=== PATIENT | male | born 1945 | race Caucasian/White ===

== ENCOUNTER 2020-09-02 10:28 | Inpatient (IN) ==
[2020-09-04] MEDS ORDERED: *HR* OxyCODONE Immed Rel 5 MG TABLET PO PRN (22:54)
[2020-09-05] MEDS: *HR* OxyCODONE/APAP 5/325 TABLET PO PRN ×2 (03:44→11:22)
[2020-09-05 05:05] LABS: Basophils % 0.3 %; Eosinophils # 0.4 K/mcL (0.0-0.6); Eosinophils % 5.4 %; Hematocrit 24.5 % (37.5-50.1); Hemoglobin 8.1 g/dL (12.9-16.9); Immature Granulocytes % 1.2 % (0-4); Lymphocytes # 0.9 K/mcL (0.6-4.6); Lymphocytes % 13.1 %; Mean Corpuscular HGB Conc 33.1 g/dL (31.6-35.5); Mean Corpuscular Hemoglobin 35.4 pg (28.0-33.3); Mean Platelet Volume 8.9 fL (9.4-12.4); Monocytes # 0.6 K/mcL (0.0-1.3); Monocytes % 8.1 %; Neutrophils # 4.9 K/mcL (1.6-8.9); Platelet Count 255 K/mcL (140-400); Red Blood Count 2.29 M/mcL (4.19-5.50); Red Cell Distribution Width 14.5 % (11.5-14.5); Segmented Neutrophils % 71.9 %; White Blood Count 6.8 K/mcL (4.3-11.1)
[2020-09-05] MEDS ORDERED: methocarbamoL 750 MG TABLET PO SCH (05:15)
[2020-09-05] MEDS: methocarbamoL 500 MG TABLET PO SCH ×3 (05:16→21:20)
[2020-09-05 05:19] LABS: BUN/Creatinine Ratio 31 (6-26); Blood Urea Nitrogen 22 mg/dL (8-23); Calcium 7.9 mg/dL (8.6-10.3); Carbon Dioxide 27 mEq/L (23-29); Chloride 107 mEq/L (98-107); Glucose 101 mg/dL (70-105); Osmolality,Calculated 293 (280-300); Potassium 3.8 mEq/L (3.5-5.1); Sodium 140 mEq/L (136-145); eGFR For African Americans > 60 (> 60); eGFR For Non-African Americans > 60 (> 60)
[2020-09-05] MEDS ORDERED: *HR* Enoxaparin 40 MG/0.4 ML SYRINGE SQ SCH (07:00)
[2020-09-05] MEDS: *HR* Rivaroxaban 10 MG TABLET PO SCH (07:45)
[2020-09-05] MEDS: Aspirin Enteric Coated 81 MG Tablet PO SCH (07:45)
[2020-09-05] MEDS: Finasteride 5 MG TABLET PO SCH (07:45)
[2020-09-05] MEDS: Multivit/Ca/Min/Fe/FA 1 TAB TABLET PO SCH (07:45)
[2020-09-05] MEDS: Carbidopa/Levodopa 25/100 TABLET PO SCH ×3 (07:46→15:23)
[2020-09-05] MEDS: Rasagiline Mesylate [Azilect] 1 MG PO SCH (07:47)
[2020-09-05] MEDS: polyethylene glycoL 3350 17 GM POWD.PACK PO SCH (13:07)
[2020-09-05] MEDS: QUEtiapine Fumarate 25 MG TABLET PO SCH (21:20)
[2020-09-05] MEDS: traZODone 50 MG TABLET PO SCH (21:20)
[2020-09-05] MEDS: Latanoprost 2.5 ML BOTTLE BOTH EYES SCH (21:21)
[2020-09-06] MEDS: Aspirin Enteric Coated 81 MG Tablet PO SCH (08:03)
[2020-09-06] MEDS: *HR* OxyCODONE/APAP 5/325 TABLET PO PRN ×2 (08:03→20:38)
[2020-09-06] MEDS: Multivit/Ca/Min/Fe/FA 1 TAB TABLET PO SCH (08:03)
[2020-09-06] MEDS: Finasteride 5 MG TABLET PO SCH (08:04)
[2020-09-06] MEDS: *HR* Rivaroxaban 10 MG TABLET PO SCH (08:04)
[2020-09-06] MEDS: methocarbamoL 500 MG TABLET PO SCH ×3 (08:04→20:39)
[2020-09-06] MEDS: EXELON TP SCH (08:06)
[2020-09-06] MEDS: Rasagiline Mesylate [Azilect] 1 MG PO SCH (08:06)
[2020-09-06] MEDS: Carbidopa/Levodopa 25/100 TABLET PO SCH ×3 (08:15→16:36)
[2020-09-06] MEDS: polyethylene glycoL 3350 17 GM POWD.PACK PO SCH (08:15)
[2020-09-06] MEDS: QUEtiapine Fumarate 25 MG TABLET PO SCH (20:37)
[2020-09-06] MEDS: Sennosides/Docusate Sodium TABLET PO PRN (20:38)
[2020-09-06] MEDS: Latanoprost 2.5 ML BOTTLE BOTH EYES SCH (20:40)
[2020-09-06] MEDS: traZODone 50 MG TABLET PO SCH (20:40)
[2020-09-07 04:38] LABS: Hematocrit 24.2 % (37.5-50.1); Hemoglobin 7.8 g/dL (12.9-16.9); Mean Corpuscular HGB Conc 32.2 g/dL (31.6-35.5); Mean Corpuscular Hemoglobin 34.8 pg (28.0-33.3); Mean Platelet Volume 8.3 fL (9.4-12.4); Platelet Count 267 K/mcL (140-400); Red Blood Count 2.24 M/mcL (4.19-5.50); Red Cell Distribution Width 15.9 % (11.5-14.5); White Blood Count 5.7 K/mcL (4.3-11.1)
[2020-09-07 04:58] LABS: Alanine Aminotransferase 25 Units/L (7-52); Albumin 2.9 g/dL (3.5-5.7); Albumin/Globulin Ratio 1.4 (1.1-2.2); Alkaline Phosphatase 79 Units/L (34-104); Aspartate Amino Transferase 32 Units/L (13-39); BUN/Creatinine Ratio 47 (6-26); Bilirubin,Total 0.8 mg/dL (0.3-1.0); Blood Urea Nitrogen 32 mg/dL (8-23); Carbon Dioxide 28 mEq/L (23-29); Chloride 110 mEq/L (98-107); Globulin 2.1 g/dL (2.4-3.5); Glucose 94 mg/dL (70-105); Magnesium 2.2 mg/dL (1.6-2.6); Osmolality,Calculated 301 (280-300); Potassium 3.9 mEq/L (3.5-5.1); Sodium 142 mEq/L (136-145); eGFR For African Americans > 60 (> 60); eGFR For Non-African Americans > 60 (> 60)
[2020-09-07] MEDS: *HR* Rivaroxaban 10 MG TABLET PO SCH (09:09)
[2020-09-07] MEDS: polyethylene glycoL 3350 17 GM POWD.PACK PO SCH (09:09)
[2020-09-07] MEDS: Aspirin Enteric Coated 81 MG Tablet PO SCH (09:09)
[2020-09-07] MEDS: Multivit/Ca/Min/Fe/FA 1 TAB TABLET PO SCH (09:10)
[2020-09-07] MEDS: methocarbamoL 500 MG TABLET PO SCH ×3 (09:10→21:08)
[2020-09-07] MEDS: Finasteride 5 MG TABLET PO SCH (09:10)
[2020-09-07] MEDS: Carbidopa/Levodopa 25/100 TABLET PO SCH ×3 (09:12→16:32)
[2020-09-07] MEDS: Rasagiline Mesylate [Azilect] 1 MG PO SCH (09:18)
[2020-09-07] MEDS: EXELON TP SCH (09:18)
[2020-09-07] MEDS: *HR* OxyCODONE/APAP 5/325 TABLET PO PRN ×2 (11:42→21:08)
[2020-09-07] MEDS: QUEtiapine Fumarate 25 MG TABLET PO SCH (21:08)
[2020-09-07] MEDS: Sennosides/Docusate Sodium TABLET PO PRN (21:08)
[2020-09-07] MEDS: traZODone 50 MG TABLET PO SCH (21:09)
[2020-09-07] MEDS: Latanoprost 2.5 ML BOTTLE BOTH EYES SCH (21:12)
[2020-09-08] MEDS: *HR* OxyCODONE/APAP 5/325 TABLET PO PRN ×3 (04:41→20:58)
[2020-09-08 05:00] LABS: Hematocrit 23.5 % (37.5-50.1); Hemoglobin 7.8 g/dL (12.9-16.9); Mean Corpuscular HGB Conc 33.2 g/dL (31.6-35.5); Mean Corpuscular Hemoglobin 36.3 pg (28.0-33.3); Mean Corpuscular Volume 109.3 fL (83.0-100.0); Mean Platelet Volume 8.5 fL (9.4-12.4); Platelet Count 289 K/mcL (140-400); Red Blood Count 2.15 M/mcL (4.19-5.50); Red Cell Distribution Width 16.4 % (11.5-14.5); White Blood Count 6.1 K/mcL (4.3-11.1)
[2020-09-08 05:18] LABS: Alanine Aminotransferase 17 Units/L (7-52); Albumin 2.8 g/dL (3.5-5.7); Albumin/Globulin Ratio 1.4 (1.1-2.2); Alkaline Phosphatase 75 Units/L (34-104); Aspartate Amino Transferase 24 Units/L (13-39); BUN/Creatinine Ratio 48 (6-26); Bilirubin,Total 0.8 mg/dL (0.3-1.0); Blood Urea Nitrogen 32 mg/dL (8-23); Calcium 7.9 mg/dL (8.6-10.3); Carbon Dioxide 28 mEq/L (23-29); Chloride 106 mEq/L (98-107); Glucose 87 mg/dL (70-105); Magnesium 2.1 mg/dL (1.6-2.6); Osmolality,Calculated 294 (280-300); Potassium 3.8 mEq/L (3.5-5.1); Sodium 139 mEq/L (136-145); Total Protein 4.8 g/dL (6.4-8.9); eGFR For African Americans > 60 (> 60); eGFR For Non-African Americans > 60 (> 60)
[2020-09-08] MEDS: Rasagiline Mesylate [Azilect] 1 MG PO SCH (08:15)
[2020-09-08] MEDS: EXELON TP SCH (08:15)
[2020-09-08] MEDS: polyethylene glycoL 3350 17 GM POWD.PACK PO SCH (08:16)
[2020-09-08] MEDS: methocarbamoL 500 MG TABLET PO SCH ×3 (08:16→20:58)
[2020-09-08] MEDS: Multivit/Ca/Min/Fe/FA 1 TAB TABLET PO SCH (08:17)
[2020-09-08] MEDS: Finasteride 5 MG TABLET PO SCH (08:17)
[2020-09-08] MEDS: Aspirin Enteric Coated 81 MG Tablet PO SCH (08:19)
[2020-09-08] MEDS: *HR* Rivaroxaban 10 MG TABLET PO SCH (08:19)
[2020-09-08 08:47] LABS: % Iron Saturation 28 % (20-55); Iron 59 mcg/dL (65-175); Transferrin 150 mg/dL (203-362)
[2020-09-08 09:13] LABS: Folate 17.6 ng/mL (3.0-16.0)
[2020-09-08] MEDS: Carbidopa/Levodopa 25/100 TABLET PO SCH ×3 (09:49→16:23)
[2020-09-08] MEDS: Sennosides/Docusate Sodium TABLET PO PRN ×2 (12:40→20:57)
[2020-09-08] MEDS: QUEtiapine Fumarate 25 MG TABLET PO SCH (20:57)
[2020-09-08] MEDS: traZODone 50 MG TABLET PO SCH (20:58)
[2020-09-08] MEDS: Latanoprost 2.5 ML BOTTLE BOTH EYES SCH (20:59)
[2020-09-09] MEDS: *HR* OxyCODONE/APAP 5/325 TABLET PO PRN ×2 (06:04→21:28)
[2020-09-09] MEDS: methocarbamoL 500 MG TABLET PO SCH ×3 (08:01→21:29)
[2020-09-09] MEDS: Finasteride 5 MG TABLET PO SCH (08:01)
[2020-09-09] MEDS: Aspirin Enteric Coated 81 MG Tablet PO SCH (08:01)
[2020-09-09] MEDS: *HR* Rivaroxaban 10 MG TABLET PO SCH (08:01)
[2020-09-09] MEDS: Multivit/Ca/Min/Fe/FA 1 TAB TABLET PO SCH (08:02)
[2020-09-09] MEDS: Carbidopa/Levodopa 25/100 TABLET PO SCH ×3 (08:02→17:26)
[2020-09-09] MEDS: polyethylene glycoL 3350 17 GM POWD.PACK PO SCH (08:02)
[2020-09-09] MEDS: EXELON TP SCH (08:03)
[2020-09-09] MEDS: Rasagiline Mesylate [Azilect] 1 MG PO SCH (08:03)
[2020-09-09] MEDS: Acetaminophen 325 MG TABLET PO PRN (17:23)
[2020-09-09] MEDS: Sennosides/Docusate Sodium TABLET PO PRN (21:28)
[2020-09-09] MEDS: traZODone 50 MG TABLET PO SCH (21:29)
[2020-09-09] MEDS: QUEtiapine Fumarate 25 MG TABLET PO SCH (21:29)
[2020-09-09] MEDS: Latanoprost 2.5 ML BOTTLE BOTH EYES SCH (21:34)
[2020-09-10] MEDS: *HR* OxyCODONE/APAP 5/325 TABLET PO PRN ×2 (04:39→21:19)
[2020-09-10 04:46] LABS: Basophils % 0.6 %; Eosinophils # 0.2 K/mcL (0.0-0.6); Eosinophils % 4.8 %; Hematocrit 23.3 % (37.5-50.1); Hemoglobin 7.6 g/dL (12.9-16.9); Immature Granulocytes % 0.8 % (0-4); Lymphocytes # 0.7 K/mcL (0.6-4.6); Lymphocytes % 15.2 %; Mean Corpuscular HGB Conc 32.6 g/dL (31.6-35.5); Mean Corpuscular Hemoglobin 35.5 pg (28.0-33.3); Mean Corpuscular Volume 108.9 fL (83.0-100.0); Mean Platelet Volume 8.6 fL (9.4-12.4); Monocytes # 0.4 K/mcL (0.0-1.3); Monocytes % 8.3 %; Neutrophils # 3.4 K/mcL (1.6-8.9); Platelet Count 315 K/mcL (140-400); Red Blood Count 2.14 M/mcL (4.19-5.50); Red Cell Distribution Width 16.8 % (11.5-14.5); Segmented Neutrophils % 70.3 %; White Blood Count 4.8 K/mcL (4.3-11.1)
[2020-09-10 05:00] LABS: BUN/Creatinine Ratio 47 (6-26); Blood Urea Nitrogen 31 mg/dL (8-23); Calcium 7.8 mg/dL (8.6-10.3); Carbon Dioxide 29 mEq/L (23-29); Chloride 108 mEq/L (98-107); Glucose 97 mg/dL (70-105); Osmolality,Calculated 298 (280-300); Sodium 141 mEq/L (136-145); eGFR For African Americans > 60 (> 60); eGFR For Non-African Americans > 60 (> 60)
[2020-09-10] MEDS: polyethylene glycoL 3350 17 GM POWD.PACK PO SCH (08:40)
[2020-09-10] MEDS: methocarbamoL 500 MG TABLET PO SCH ×3 (08:40→21:18)
[2020-09-10] MEDS: EXELON TP SCH (08:41)
[2020-09-10] MEDS: Rasagiline Mesylate [Azilect] 1 MG PO SCH (08:41)
[2020-09-10] MEDS: Aspirin Enteric Coated 81 MG Tablet PO SCH (08:41)
[2020-09-10] MEDS: Multivit/Ca/Min/Fe/FA 1 TAB TABLET PO SCH (08:42)
[2020-09-10] MEDS: *HR* Rivaroxaban 10 MG TABLET PO SCH (08:42)
[2020-09-10] MEDS: Carbidopa/Levodopa 25/100 TABLET PO SCH ×3 (08:42→17:39)
[2020-09-10] MEDS: Finasteride 5 MG TABLET PO SCH (08:42)
[2020-09-10] MEDS: Acetaminophen 325 MG TABLET PO PRN (08:48)
[2020-09-10] MEDS: QUEtiapine Fumarate 25 MG TABLET PO SCH (21:18)
[2020-09-10] MEDS: Latanoprost 2.5 ML BOTTLE BOTH EYES SCH (21:19)
[2020-09-10] MEDS: traZODone 50 MG TABLET PO SCH (21:19)
[2020-09-11] MEDS: *HR* OxyCODONE/APAP 5/325 TABLET PO PRN ×2 (06:06→20:57)
[2020-09-11] MEDS: polyethylene glycoL 3350 17 GM POWD.PACK PO SCH (09:05)
[2020-09-11] MEDS: Finasteride 5 MG TABLET PO SCH (09:06)
[2020-09-11] MEDS: Carbidopa/Levodopa 25/100 TABLET PO SCH ×3 (09:06→16:57)
[2020-09-11] MEDS: methocarbamoL 500 MG TABLET PO SCH ×3 (09:06→20:57)
[2020-09-11] MEDS: Aspirin Enteric Coated 81 MG Tablet PO SCH (09:06)
[2020-09-11] MEDS: Multivit/Ca/Min/Fe/FA 1 TAB TABLET PO SCH (09:07)
[2020-09-11] MEDS: EXELON TP SCH (09:07)
[2020-09-11] MEDS: *HR* Rivaroxaban 10 MG TABLET PO SCH (09:07)
[2020-09-11] MEDS: Rasagiline Mesylate [Azilect] 1 MG PO SCH (09:07)
[2020-09-11] MEDS: traZODone 50 MG TABLET PO SCH (20:56)
[2020-09-11] MEDS: QUEtiapine Fumarate 25 MG TABLET PO SCH (20:57)
[2020-09-11] MEDS: Latanoprost 2.5 ML BOTTLE BOTH EYES SCH (20:58)
[2020-09-12] MEDS: *HR* OxyCODONE/APAP 5/325 TABLET PO PRN ×2 (06:03→20:10)
[2020-09-12] MEDS: methocarbamoL 500 MG TABLET PO SCH ×3 (09:21→20:11)
[2020-09-12] MEDS: Aspirin Enteric Coated 81 MG Tablet PO SCH (09:21)
[2020-09-12] MEDS: Finasteride 5 MG TABLET PO SCH (09:22)
[2020-09-12] MEDS: *HR* Rivaroxaban 10 MG TABLET PO SCH (09:22)
[2020-09-12] MEDS: Rasagiline Mesylate [Azilect] 1 MG PO SCH (09:23)
[2020-09-12] MEDS: polyethylene glycoL 3350 17 GM POWD.PACK PO SCH (09:23)
[2020-09-12] MEDS: EXELON TP SCH (09:23)
[2020-09-12] MEDS: Multivit/Ca/Min/Fe/FA 1 TAB TABLET PO SCH (09:23)
[2020-09-12] MEDS: Carbidopa/Levodopa 25/100 TABLET PO SCH ×3 (09:29→16:56)
[2020-09-12 18:12] LABS: Color,Urine Yellow (Yellow)
[2020-09-12 18:13] LABS: Clarity,Urine Cloudy (Clear)
[2020-09-12 18:14] LABS: Bacteria,Urine Many per hpf (None-Few); Mucus,Urine Many per lpf (None-Few); WBC,Urine 50-100 per hpf (0-3)
[2020-09-12 18:17] LABS: Renal Epithelial Cells,Urine Few per hpf (None-Few); Squamous Epithelial Cell,Urine Moderate per hpf (None-Few)
[2020-09-12] MEDS: traZODone 50 MG TABLET PO SCH (20:11)
[2020-09-12] MEDS: QUEtiapine Fumarate 25 MG TABLET PO SCH (20:11)
[2020-09-12] MEDS: cephALEXin 500 MG CAPSULE PO SCH (20:12)
[2020-09-12] MEDS: Latanoprost 2.5 ML BOTTLE BOTH EYES SCH (20:14)
[2020-09-13] MEDS: *HR* OxyCODONE/APAP 5/325 TABLET PO PRN ×2 (06:12→20:54)
[2020-09-13] MEDS: Rasagiline Mesylate [Azilect] 1 MG PO SCH (08:09)
[2020-09-13] MEDS: polyethylene glycoL 3350 17 GM POWD.PACK PO SCH (08:09)
[2020-09-13] MEDS: Aspirin Enteric Coated 81 MG Tablet PO SCH (08:09)
[2020-09-13] MEDS: methocarbamoL 500 MG TABLET PO SCH ×3 (08:10→20:46)
[2020-09-13] MEDS: cephALEXin 500 MG CAPSULE PO SCH ×3 (08:10→20:50)
[2020-09-13] MEDS: *HR* Rivaroxaban 10 MG TABLET PO SCH (08:10)
[2020-09-13] MEDS: Multivit/Ca/Min/Fe/FA 1 TAB TABLET PO SCH (08:10)
[2020-09-13] MEDS: Finasteride 5 MG TABLET PO SCH (08:10)
[2020-09-13] MEDS: Carbidopa/Levodopa 25/100 TABLET PO SCH ×3 (08:12→15:49)
[2020-09-13] MEDS: EXELON TP SCH (08:12)
[2020-09-13 11:57] LABS: Basophils % 0.2 %; Eosinophils # 0.1 K/mcL (0.0-0.6); Eosinophils % 2.8 %; Hematocrit 27.1 % (37.5-50.1); Hemoglobin 8.5 g/dL (12.9-16.9); Immature Granulocytes % 0.4 % (0-4); Lymphocytes # 0.5 K/mcL (0.6-4.6); Lymphocytes % 10.5 %; Mean Corpuscular HGB Conc 31.4 g/dL (31.6-35.5); Mean Corpuscular Hemoglobin 35.4 pg (28.0-33.3); Mean Corpuscular Volume 112.9 fL (83.0-100.0); Mean Platelet Volume 8.3 fL (9.4-12.4); Monocytes # 0.5 K/mcL (0.0-1.3); Monocytes % 10.5 %; Neutrophils # 3.5 K/mcL (1.6-8.9); Platelet Count 355 K/mcL (140-400); Red Cell Distribution Width 16.5 % (11.5-14.5); Segmented Neutrophils % 75.6 %; White Blood Count 4.7 K/mcL (4.3-11.1)
[2020-09-13 12:16] LABS: BUN/Creatinine Ratio 44 (6-26); Blood Urea Nitrogen 39 mg/dL (8-23); Calcium 8.2 mg/dL (8.6-10.3); Chloride 109 mEq/L (98-107); Glucose 115 mg/dL (70-105); Osmolality,Calculated 306 (280-300); Sodium 143 mEq/L (136-145); eGFR For African Americans > 60 (> 60); eGFR For Non-African Americans > 60 (> 60)
[2020-09-13 12:17] LABS: Carbon Dioxide 30 mEq/L (23-29)
[2020-09-13] MEDS: traZODone 50 MG TABLET PO SCH (20:48)
[2020-09-13] MEDS: QUEtiapine Fumarate 25 MG TABLET PO SCH (20:53)
[2020-09-13] MEDS: Latanoprost 2.5 ML BOTTLE BOTH EYES SCH (21:01)
[2020-09-14] MEDS: *HR* OxyCODONE/APAP 5/325 TABLET PO PRN ×2 (06:06→20:18)
[2020-09-14] MEDS: Aspirin Enteric Coated 81 MG Tablet PO SCH (09:06)
[2020-09-14] MEDS: methocarbamoL 500 MG TABLET PO SCH ×3 (09:06→20:18)
[2020-09-14] MEDS: *HR* Rivaroxaban 10 MG TABLET PO SCH (09:06)
[2020-09-14] MEDS: Carbidopa/Levodopa 25/100 TABLET PO SCH ×3 (09:07→16:03)
[2020-09-14] MEDS: cephALEXin 500 MG CAPSULE PO SCH ×3 (09:07→20:20)
[2020-09-14] MEDS: Multivit/Ca/Min/Fe/FA 1 TAB TABLET PO SCH (09:07)
[2020-09-14] MEDS: Finasteride 5 MG TABLET PO SCH (09:07)
[2020-09-14] MEDS: Rasagiline Mesylate [Azilect] 1 MG PO SCH (09:09)
[2020-09-14] MEDS: EXELON TP SCH (09:09)
[2020-09-14] MEDS: polyethylene glycoL 3350 17 GM POWD.PACK PO SCH (09:09)
[2020-09-14] MEDS: traZODone 50 MG TABLET PO SCH (20:21)
[2020-09-14] MEDS: QUEtiapine Fumarate 25 MG TABLET PO SCH (20:21)
[2020-09-14] MEDS: Latanoprost 2.5 ML BOTTLE BOTH EYES SCH (20:23)
[2020-09-15] MEDS: *HR* OxyCODONE/APAP 5/325 TABLET PO PRN ×2 (06:43→22:00)
[2020-09-15] MEDS: methocarbamoL 500 MG TABLET PO SCH ×3 (08:11→21:50)
[2020-09-15] MEDS: Finasteride 5 MG TABLET PO SCH (08:11)
[2020-09-15] MEDS: *HR* Rivaroxaban 10 MG TABLET PO SCH (08:11)
[2020-09-15] MEDS: cephALEXin 500 MG CAPSULE PO SCH ×3 (08:11→21:53)
[2020-09-15] MEDS: Aspirin Enteric Coated 81 MG Tablet PO SCH (08:12)
[2020-09-15] MEDS: Carbidopa/Levodopa 25/100 TABLET PO SCH ×3 (08:12→15:53)
[2020-09-15] MEDS: Multivit/Ca/Min/Fe/FA 1 TAB TABLET PO SCH (08:12)
[2020-09-15] MEDS: polyethylene glycoL 3350 17 GM POWD.PACK PO SCH (08:14)
[2020-09-15] MEDS: EXELON TP SCH (08:15)
[2020-09-15] MEDS: Rasagiline Mesylate [Azilect] 1 MG PO SCH (08:15)
[2020-09-15] MEDS: Latanoprost 2.5 ML BOTTLE BOTH EYES SCH (21:49)
[2020-09-15] MEDS: traZODone 50 MG TABLET PO SCH (21:51)
[2020-09-15] MEDS: QUEtiapine Fumarate 25 MG TABLET PO SCH (21:58)
[2020-09-16] MEDS: *HR* OxyCODONE/APAP 5/325 TABLET PO PRN ×2 (05:37→22:19)
[2020-09-16] MEDS: Aspirin Enteric Coated 81 MG Tablet PO SCH (08:18)
[2020-09-16] MEDS: *HR* Rivaroxaban 10 MG TABLET PO SCH (08:18)
[2020-09-16] MEDS: methocarbamoL 500 MG TABLET PO SCH ×3 (08:18→22:17)
[2020-09-16] MEDS: Finasteride 5 MG TABLET PO SCH (08:19)
[2020-09-16] MEDS: Multivit/Ca/Min/Fe/FA 1 TAB TABLET PO SCH (08:19)
[2020-09-16] MEDS: polyethylene glycoL 3350 17 GM POWD.PACK PO SCH (08:19)
[2020-09-16] MEDS: Carbidopa/Levodopa 25/100 TABLET PO SCH ×3 (08:19→15:50)
[2020-09-16] MEDS: cephALEXin 500 MG CAPSULE PO SCH ×3 (08:19→22:20)
[2020-09-16] MEDS: Rasagiline Mesylate [Azilect] 1 MG PO SCH (08:20)
[2020-09-16] MEDS: EXELON TP SCH (08:20)
[2020-09-16] MEDS: Acetaminophen 325 MG TABLET PO PRN (12:10)
[2020-09-16] MEDS: traZODone 50 MG TABLET PO SCH (22:18)
[2020-09-16] MEDS: QUEtiapine Fumarate 25 MG TABLET PO SCH (22:19)
[2020-09-16] MEDS: Latanoprost 2.5 ML BOTTLE BOTH EYES SCH (23:59)
[2020-09-17] MEDS: *HR* OxyCODONE/APAP 5/325 TABLET PO PRN ×2 (05:19→20:50)
[2020-09-17 05:26] LABS: Basophils % 0.5 %; Eosinophils # 0.2 K/mcL (0.0-0.6); Eosinophils % 4.8 %; Hemoglobin 8.4 g/dL (12.9-16.9); Immature Granulocytes % 0.7 % (0-4); Lymphocytes # 0.8 K/mcL (0.6-4.6); Lymphocytes % 18.9 %; Mean Corpuscular HGB Conc 32.3 g/dL (31.6-35.5); Mean Corpuscular Hemoglobin 35.3 pg (28.0-33.3); Mean Corpuscular Volume 109.2 fL (83.0-100.0); Mean Platelet Volume 8.3 fL (9.4-12.4); Monocytes # 0.4 K/mcL (0.0-1.3); Monocytes % 8.9 %; Neutrophils # 2.9 K/mcL (1.6-8.9); Platelet Count 386 K/mcL (140-400); Red Blood Count 2.38 M/mcL (4.19-5.50); Red Cell Distribution Width 15.8 % (11.5-14.5); Segmented Neutrophils % 66.2 %; White Blood Count 4.4 K/mcL (4.3-11.1)
[2020-09-17 05:46] LABS: BUN/Creatinine Ratio 36 (6-26); Blood Urea Nitrogen 26 mg/dL (8-23); Calcium 8.2 mg/dL (8.6-10.3); Carbon Dioxide 29 mEq/L (23-29); Chloride 107 mEq/L (98-107); Glucose 96 mg/dL (70-105); Osmolality,Calculated 299 (280-300); Sodium 142 mEq/L (136-145); eGFR For African Americans > 60 (> 60); eGFR For Non-African Americans > 60 (> 60)
[2020-09-17] MEDS: polyethylene glycoL 3350 17 GM POWD.PACK PO SCH (08:43)
[2020-09-17] MEDS: cephALEXin 500 MG CAPSULE PO SCH ×3 (08:45→20:50)
[2020-09-17] MEDS: Aspirin Enteric Coated 81 MG Tablet PO SCH (08:45)
[2020-09-17] MEDS: methocarbamoL 500 MG TABLET PO SCH ×3 (08:45→20:50)
[2020-09-17] MEDS: Carbidopa/Levodopa 25/100 TABLET PO SCH ×3 (08:45→16:16)
[2020-09-17] MEDS: Multivit/Ca/Min/Fe/FA 1 TAB TABLET PO SCH (08:45)
[2020-09-17] MEDS: *HR* Rivaroxaban 10 MG TABLET PO SCH (08:45)
[2020-09-17] MEDS: Finasteride 5 MG TABLET PO SCH (08:45)
[2020-09-17] MEDS: Rasagiline Mesylate [Azilect] 1 MG PO SCH (08:46)
[2020-09-17] MEDS: EXELON TP SCH (08:46)
[2020-09-17] MEDS: Latanoprost 2.5 ML BOTTLE BOTH EYES SCH (20:48)
[2020-09-17] MEDS: QUEtiapine Fumarate 25 MG TABLET PO SCH (20:49)
[2020-09-17] MEDS: Sennosides/Docusate Sodium TABLET PO PRN (20:50)
[2020-09-17] MEDS: traZODone 50 MG TABLET PO SCH (20:50)
[2020-09-18] MEDS: *HR* OxyCODONE/APAP 5/325 TABLET PO PRN ×2 (05:26→19:32)
[2020-09-18] MEDS: polyethylene glycoL 3350 17 GM POWD.PACK PO SCH (08:10)
[2020-09-18] MEDS: EXELON TP SCH (08:11)
[2020-09-18] MEDS: Rasagiline Mesylate [Azilect] 1 MG PO SCH (08:11)
[2020-09-18] MEDS: Aspirin Enteric Coated 81 MG Tablet PO SCH (08:11)
[2020-09-18] MEDS: methocarbamoL 500 MG TABLET PO SCH ×3 (08:12→19:34)
[2020-09-18] MEDS: cephALEXin 500 MG CAPSULE PO SCH ×3 (08:12→19:33)
[2020-09-18] MEDS: Carbidopa/Levodopa 25/100 TABLET PO SCH ×3 (08:12→16:57)
[2020-09-18] MEDS: Finasteride 5 MG TABLET PO SCH (08:12)
[2020-09-18] MEDS: *HR* Rivaroxaban 10 MG TABLET PO SCH (08:12)
[2020-09-18] MEDS: Multivit/Ca/Min/Fe/FA 1 TAB TABLET PO SCH (08:13)
[2020-09-18] MEDS: Sennosides/Docusate Sodium TABLET PO PRN (19:32)
[2020-09-18] MEDS: Latanoprost 2.5 ML BOTTLE BOTH EYES SCH (19:34)
[2020-09-18] MEDS: QUEtiapine Fumarate 25 MG TABLET PO SCH (19:34)
[2020-09-18] MEDS: traZODone 50 MG TABLET PO SCH (19:34)
[2020-09-19] MEDS: *HR* OxyCODONE/APAP 5/325 TABLET PO PRN ×3 (05:30→20:44)
[2020-09-19] MEDS: Aspirin Enteric Coated 81 MG Tablet PO SCH (07:57)
[2020-09-19] MEDS: Carbidopa/Levodopa 25/100 TABLET PO SCH ×3 (07:57→16:07)
[2020-09-19] MEDS: methocarbamoL 500 MG TABLET PO SCH ×3 (07:57→20:44)
[2020-09-19] MEDS: *HR* Rivaroxaban 10 MG TABLET PO SCH (07:58)
[2020-09-19] MEDS: polyethylene glycoL 3350 17 GM POWD.PACK PO SCH (07:58)
[2020-09-19] MEDS: EXELON TP SCH (07:58)
[2020-09-19] MEDS: Rasagiline Mesylate [Azilect] 1 MG PO SCH (07:58)
[2020-09-19] MEDS: Multivit/Ca/Min/Fe/FA 1 TAB TABLET PO SCH (07:58)
[2020-09-19] MEDS: Sennosides/Docusate Sodium TABLET PO PRN ×2 (07:58→20:44)
[2020-09-19] MEDS: Finasteride 5 MG TABLET PO SCH (07:58)
[2020-09-19] MEDS: cephALEXin 500 MG CAPSULE PO SCH ×3 (07:58→20:44)
[2020-09-19] MEDS: Latanoprost 2.5 ML BOTTLE BOTH EYES SCH (20:43)
[2020-09-19] MEDS: QUEtiapine Fumarate 25 MG TABLET PO SCH (20:44)
[2020-09-19] MEDS: traZODone 50 MG TABLET PO SCH (20:45)
[2020-09-20] MEDS: *HR* OxyCODONE/APAP 5/325 TABLET PO PRN ×3 (04:19→20:34)
[2020-09-20] MEDS: methocarbamoL 500 MG TABLET PO SCH ×3 (08:09→20:34)
[2020-09-20] MEDS: Carbidopa/Levodopa 25/100 TABLET PO SCH ×3 (08:09→15:32)
[2020-09-20] MEDS: Aspirin Enteric Coated 81 MG Tablet PO SCH (08:10)
[2020-09-20] MEDS: EXELON TP SCH (08:10)
[2020-09-20] MEDS: Finasteride 5 MG TABLET PO SCH (08:10)
[2020-09-20] MEDS: polyethylene glycoL 3350 17 GM POWD.PACK PO SCH (08:10)
[2020-09-20] MEDS: *HR* Rivaroxaban 10 MG TABLET PO SCH (08:10)
[2020-09-20] MEDS: Multivit/Ca/Min/Fe/FA 1 TAB TABLET PO SCH (08:10)
[2020-09-20] MEDS: Rasagiline Mesylate [Azilect] 1 MG PO SCH (08:10)
[2020-09-20] MEDS: traZODone 50 MG TABLET PO SCH (20:33)
[2020-09-20] MEDS: QUEtiapine Fumarate 25 MG TABLET PO SCH (20:34)
[2020-09-20] MEDS: Latanoprost 2.5 ML BOTTLE BOTH EYES SCH (20:35)
[2020-09-21] MEDS: polyethylene glycoL 3350 17 GM POWD.PACK PO SCH (08:03)
[2020-09-21] MEDS: Aspirin Enteric Coated 81 MG Tablet PO SCH (08:03)
[2020-09-21] MEDS: Finasteride 5 MG TABLET PO SCH (08:03)
[2020-09-21] MEDS: Multivit/Ca/Min/Fe/FA 1 TAB TABLET PO SCH (08:04)
[2020-09-21] MEDS: *HR* OxyCODONE/APAP 5/325 TABLET PO PRN ×2 (08:04→20:20)
[2020-09-21] MEDS: *HR* Rivaroxaban 10 MG TABLET PO SCH (08:04)
[2020-09-21] MEDS: methocarbamoL 500 MG TABLET PO SCH ×3 (08:04→20:21)
[2020-09-21] MEDS: EXELON TP SCH (08:06)
[2020-09-21] MEDS: Rasagiline Mesylate [Azilect] 1 MG PO SCH (08:06)
[2020-09-21] MEDS: Carbidopa/Levodopa 25/100 TABLET PO SCH ×3 (08:11→17:26)
[2020-09-21] MEDS: QUEtiapine Fumarate 25 MG TABLET PO SCH (20:21)
[2020-09-21] MEDS: traZODone 50 MG TABLET PO SCH (20:21)
[2020-09-21] MEDS: Latanoprost 2.5 ML BOTTLE BOTH EYES SCH (20:22)
[2020-09-22 07:15] LABS: Hemoglobin 8.8 g/dL (12.9-16.9); Mean Corpuscular HGB Conc 31.4 g/dL (31.6-35.5); Mean Corpuscular Hemoglobin 34.6 pg (28.0-33.3); Mean Corpuscular Volume 110.2 fL (83.0-100.0); Mean Platelet Volume 8.6 fL (9.4-12.4); Platelet Count 316 K/mcL (140-400); Red Blood Count 2.54 M/mcL (4.19-5.50); Red Cell Distribution Width 15.8 % (11.5-14.5); White Blood Count 5.4 K/mcL (4.3-11.1)
[2020-09-22 07:35] LABS: Alanine Aminotransferase 6 Units/L (7-52); Albumin 2.8 g/dL (3.5-5.7); Albumin/Globulin Ratio 1.1 (1.1-2.2); Alkaline Phosphatase 115 Units/L (34-104); Aspartate Amino Transferase 17 Units/L (13-39); BUN/Creatinine Ratio 39 (6-26); Bilirubin,Total 0.4 mg/dL (0.3-1.0); Blood Urea Nitrogen 28 mg/dL (8-23); Calcium 8.4 mg/dL (8.6-10.3); Carbon Dioxide 29 mEq/L (23-29); Chloride 105 mEq/L (98-107); Globulin 2.6 g/dL (2.4-3.5); Glucose 97 mg/dL (70-105); Magnesium 2.1 mg/dL (1.6-2.6); Osmolality,Calculated 293 (280-300); Potassium 3.7 mEq/L (3.5-5.1); Sodium 139 mEq/L (136-145); Total Protein 5.4 g/dL (6.4-8.9); eGFR For African Americans > 60 (> 60); eGFR For Non-African Americans > 60 (> 60)
[2020-09-22] MEDS: Carbidopa/Levodopa 25/100 TABLET PO SCH ×3 (08:07→19:03)
[2020-09-22] MEDS: *HR* Rivaroxaban 10 MG TABLET PO SCH (08:08)
[2020-09-22] MEDS: Multivit/Ca/Min/Fe/FA 1 TAB TABLET PO SCH (08:08)
[2020-09-22] MEDS: Aspirin Enteric Coated 81 MG Tablet PO SCH (08:08)
[2020-09-22] MEDS: methocarbamoL 500 MG TABLET PO SCH ×3 (08:08→20:58)
[2020-09-22] MEDS: Finasteride 5 MG TABLET PO SCH (08:09)
[2020-09-22] MEDS: polyethylene glycoL 3350 17 GM POWD.PACK PO SCH (08:11)
[2020-09-22] MEDS: Rasagiline Mesylate [Azilect] 1 MG PO SCH (08:11)
[2020-09-22] MEDS: EXELON TP SCH (08:11)
[2020-09-22] MEDS: QUEtiapine Fumarate 25 MG TABLET PO SCH (20:59)
[2020-09-22] MEDS: Latanoprost 2.5 ML BOTTLE BOTH EYES SCH (21:00)
[2020-09-22] MEDS: traZODone 50 MG TABLET PO SCH (21:00)
[2020-09-23] MEDS: methocarbamoL 500 MG TABLET PO SCH ×3 (10:27→20:01)
[2020-09-23] MEDS: *HR* Rivaroxaban 10 MG TABLET PO SCH (10:27)
[2020-09-23] MEDS: polyethylene glycoL 3350 17 GM POWD.PACK PO SCH (10:27)
[2020-09-23] MEDS: Carbidopa/Levodopa 25/100 TABLET PO SCH ×3 (10:28→15:56)
[2020-09-23] MEDS: Multivit/Ca/Min/Fe/FA 1 TAB TABLET PO SCH (10:28)
[2020-09-23] MEDS: Aspirin Enteric Coated 81 MG Tablet PO SCH (10:28)
[2020-09-23] MEDS: Finasteride 5 MG TABLET PO SCH (10:29)
[2020-09-23] MEDS: Rasagiline Mesylate [Azilect] 1 MG PO SCH (10:31)
[2020-09-23] MEDS: EXELON TP SCH (10:31)
[2020-09-23] MEDS: Acetaminophen 325 MG TABLET PO PRN (19:22)
[2020-09-23] MEDS: traZODone 50 MG TABLET PO SCH (20:03)
[2020-09-23] MEDS: QUEtiapine Fumarate 25 MG TABLET PO SCH (20:03)
[2020-09-23] MEDS: Latanoprost 2.5 ML BOTTLE BOTH EYES SCH (20:04)
[2020-09-24] MEDS: *HR* OxyCODONE/APAP 5/325 TABLET PO PRN (02:58)
[2020-09-24] MEDS: polyethylene glycoL 3350 17 GM POWD.PACK PO SCH (09:17)
[2020-09-24] MEDS: Aspirin Enteric Coated 81 MG Tablet PO SCH (09:17)
[2020-09-24] MEDS: Finasteride 5 MG TABLET PO SCH (09:17)
[2020-09-24] MEDS: *HR* Rivaroxaban 10 MG TABLET PO SCH (09:17)
[2020-09-24] MEDS: Multivit/Ca/Min/Fe/FA 1 TAB TABLET PO SCH (09:17)
[2020-09-24] MEDS: methocarbamoL 500 MG TABLET PO SCH ×3 (09:17→21:52)
[2020-09-24] MEDS: EXELON TP SCH (09:19)
[2020-09-24] MEDS: Rasagiline Mesylate [Azilect] 1 MG PO SCH (09:19)
[2020-09-24] MEDS: Carbidopa/Levodopa 25/100 TABLET PO SCH ×3 (09:21→15:57)
[2020-09-24] MEDS: Acetaminophen 325 MG TABLET PO PRN (21:51)
[2020-09-24] MEDS: traZODone 50 MG TABLET PO SCH (21:51)
[2020-09-24] MEDS: QUEtiapine Fumarate 25 MG TABLET PO SCH (21:52)
[2020-09-24] MEDS: Latanoprost 2.5 ML BOTTLE BOTH EYES SCH (21:53)
[2020-09-25] MEDS: Acetaminophen 325 MG TABLET PO PRN (05:44)
[2020-09-25] MEDS: polyethylene glycoL 3350 17 GM POWD.PACK PO SCH (08:41)
[2020-09-25] MEDS: methocarbamoL 500 MG TABLET PO SCH ×3 (08:41→21:21)
[2020-09-25] MEDS: Multivit/Ca/Min/Fe/FA 1 TAB TABLET PO SCH (08:41)
[2020-09-25] MEDS: Finasteride 5 MG TABLET PO SCH (08:42)
[2020-09-25] MEDS: Aspirin Enteric Coated 81 MG Tablet PO SCH (08:42)
[2020-09-25] MEDS: *HR* Rivaroxaban 10 MG TABLET PO SCH (08:42)
[2020-09-25] MEDS: Rasagiline Mesylate [Azilect] 1 MG PO SCH (09:30)
[2020-09-25] MEDS: Carbidopa/Levodopa 25/100 TABLET PO SCH ×3 (09:30→16:59)
[2020-09-25] MEDS: EXELON TP SCH (09:30)
[2020-09-25] MEDS: Latanoprost 2.5 ML BOTTLE BOTH EYES SCH (21:21)
[2020-09-25] MEDS: traZODone 50 MG TABLET PO SCH (21:21)
[2020-09-25] MEDS: QUEtiapine Fumarate 25 MG TABLET PO SCH (21:21)
[2020-09-26] MEDS: Acetaminophen 325 MG TABLET PO PRN (05:49)
[2020-09-26] MEDS: Multivit/Ca/Min/Fe/FA 1 TAB TABLET PO SCH (08:54)
[2020-09-26] MEDS: methocarbamoL 500 MG TABLET PO SCH ×3 (08:54→20:17)
[2020-09-26] MEDS: *HR* Rivaroxaban 10 MG TABLET PO SCH (08:54)
[2020-09-26] MEDS: Finasteride 5 MG TABLET PO SCH (08:54)
[2020-09-26] MEDS: Aspirin Enteric Coated 81 MG Tablet PO SCH (08:54)
[2020-09-26] MEDS: polyethylene glycoL 3350 17 GM POWD.PACK PO SCH (08:55)
[2020-09-26] MEDS: EXELON TP SCH (08:55)
[2020-09-26] MEDS: Rasagiline Mesylate [Azilect] 1 MG PO SCH (08:55)
[2020-09-26] MEDS: Carbidopa/Levodopa 25/100 TABLET PO SCH ×3 (08:58→17:45)
[2020-09-26] MEDS: *HR* OxyCODONE/APAP 5/325 TABLET PO PRN ×2 (12:01→20:25)
[2020-09-26] MEDS: traZODone 50 MG TABLET PO SCH (20:17)
[2020-09-26] MEDS: QUEtiapine Fumarate 25 MG TABLET PO SCH (20:17)
[2020-09-26] MEDS: Latanoprost 2.5 ML BOTTLE BOTH EYES SCH (20:25)
[2020-09-27 07:14] VITALS: BP 155/73
[2020-09-27] MEDS: methocarbamoL 500 MG TABLET PO SCH (07:59)
[2020-09-27] MEDS: Finasteride 5 MG TABLET PO SCH (07:59)
[2020-09-27] MEDS: Carbidopa/Levodopa 25/100 TABLET PO SCH (07:59)
[2020-09-27] MEDS: polyethylene glycoL 3350 17 GM POWD.PACK PO SCH (08:00)
[2020-09-27] MEDS: Multivit/Ca/Min/Fe/FA 1 TAB TABLET PO SCH (08:00)
[2020-09-27] MEDS: Aspirin Enteric Coated 81 MG Tablet PO SCH (08:00)
[2020-09-27] MEDS: *HR* Rivaroxaban 10 MG TABLET PO SCH (08:00)
== END 2020-09-27 11:30 | DRG 560 ==
LOC: INPGRE 09-04 20:41
PROVIDERS: ADMIT Family Medicine; ATTEND Family Medicine